=== PATIENT | female | born 1975 | race Caucasian/White ===

== ENCOUNTER → 2016-08-08 | Outpatient (REF) | payer OTHER | LOC: M LAB REF 16:57 | PROVIDERS: ATTEND Advanced Practice Midwife | DX: Z34.83 Encounter for supervision of other normal pregnancy, third trimester (principal) ==

== ENCOUNTER → 2016-08-15 | Outpatient (CLI) | payer OTHER ==
[2016-08-15 13:34] LABS: MEAN CORPUSCULAR HEMOGLOBIN 29.2 pg (27.0-33.0); MEAN CORPUSCULAR HGB CONC 33.9 g/dl (32.0-36.5); MEAN CORPUSCULAR VOLUME 86.4 fl (80.0-96.0); RED CELL DISTRIBUTION WIDTH 13.5 % (11.5-14.5); WHITE BLOOD COUNT 12.8 K/mm3 (4.0-10.0)
[2016-08-15 14:02] LABS: ALT/SGPT 23 U/L (12-78); AST/SGOT 24 U/L (15-37); BILIRUBIN,TOTAL 0.4 MG/DL (0.2-1.0); CREATININE FOR GFR 0.69 MG/DL (0.55-1.02); GLOMERULAR FILTRATION RATE > 60.0 (>60)
== END ==
LOC: M WUC 10:35
PROVIDERS: ATTEND Advanced Practice Midwife
DX: O16.3 Unspecified maternal hypertension, third trimester (principal); Z3A.00 Weeks of gestation of pregnancy not specified

== ENCOUNTER 2016-08-31 16:14 | Inpatient (IN) | payer OTHER ==
[2016-08-31] VITALS (8 sets, daily range): BP systolic 129–152; BP diastolic 61–89
[~2016-08-31] VITALS: Ht 167.6 cm; Wt 98.0 kg
[2016-08-31] MEDS ORDERED: PRENTAB9 PO (16:36)
[2016-08-31] MEDS ORDERED: LACTATED RINGER'S 1000 ML IV STA (17:58)
[2016-08-31] MEDS ORDERED: LR 1,000 ML IV SCH (17:58)
[2016-08-31] MEDS ORDERED: miSOPROStol 50 MCG 1/2 TAB (S0191) SL ONE (18:00)
[2016-08-31 18:43] LABS: MEAN CORPUSCULAR HEMOGLOBIN 29.3 pg (27.0-33.0); MEAN CORPUSCULAR HGB CONC 34.4 g/dl (32.0-36.5); MEAN CORPUSCULAR VOLUME 85.3 fl (80.0-96.0); RED CELL DISTRIBUTION WIDTH 14.5 % (11.5-14.5); WHITE BLOOD COUNT 19.5 K/mm3 (4.0-10.0)
[2016-08-31 19:00] LABS: ALT/SGPT 15 U/L (12-78); AST/SGOT 20 U/L (15-37); BILIRUBIN,TOTAL 0.3 MG/DL (0.2-1.0); GLOMERULAR FILTRATION RATE > 60.0 (>60); URIC ACID 4.6 MG/DL (2.6-6.0)
[2016-08-31] MEDS ORDERED: OXYTOCIN DRIP 30 UNITS in APPROPRIATE DILUENT 1 EA IV SCH (23:45)
[2016-09-01] VITALS (37 sets, daily range): BP systolic 92–172; BP diastolic 46–94
[2016-09-01] MEDS ORDERED: OMEPRAZOLE 20 MG CAP PO ONE (00:45)
[2016-09-01] MEDS ORDERED: FENTANYL 2MCG/ML ROPIVACAINE 0.2% NACL 250 ML CADD As Ordered ONE (01:49)
[2016-09-01 02:16] LABS: MEAN CORPUSCULAR HEMOGLOBIN 29.2 pg (27.0-33.0); MEAN CORPUSCULAR HGB CONC 34.5 g/dl (32.0-36.5); MEAN CORPUSCULAR VOLUME 84.7 fl (80.0-96.0); RED CELL DISTRIBUTION WIDTH 14.3 % (11.5-14.5); WHITE BLOOD COUNT 21.1 K/mm3 (4.0-10.0)
[2016-09-01] MEDS ORDERED: REFRIGERATOR IV KEYS XX PRN (02:25)
[2016-09-01] MEDS ORDERED: ePHEDrine SULFATE 25 MG/5 ML(5MG/ML) SYRINGE IV PRN (02:25)
[2016-09-01] MEDS ORDERED: LACTATED RINGER'S 1000 ML IV PRN (02:25)
[2016-09-01] MEDS ORDERED: ONDANSETRON 4MG/2ML VIAL (J2405) IV PRN (02:25)
[2016-09-01] MEDS ORDERED: EPIDURAL COMMENT XX SCH (02:25)
[2016-09-01] MEDS ORDERED: diphenhydrAMINE INJ 50MG/ML VIAL (J1200) IV PRN (02:25)
[2016-09-01] MEDS ORDERED: NALOXONE INJ 0.4 MG/1 ML VIAL (J2310) IV PRN (02:25)
[2016-09-01] MEDS ORDERED: FENTANYL/ROPIVACAINE/NACL CADD 250 ML EPIDURAL SCH (02:25)
[2016-09-01] MEDS ORDERED: EPIDURAL/PCA KEYS XX PRN (02:25)
[2016-09-01] MEDS ORDERED: ePHEDrine SULFATE 25 MG/5 ML(5MG/ML) SYRINGE As Ordered ONE (03:01)
[2016-09-01 08:31] LABS: CORD GAS ABE V -8.2; CORD GAS O2 SAT V 37.1 %; CORD GAS PCO2 V 57.4 mmHg; CORD GAS PH V 7.182 UNITS; CORD GAS SBC V 16.6 MEQ/L; CORD GAS TCO2 V 22.8 MEQ/L
[2016-09-01 08:39] LABS: CORD GAS ABE A -10.1; CORD GAS HCO3 A 22.2 MEQ/L; CORD GAS O2 SAT A 21.8 %; CORD GAS PCO2 A 79.4 mmHg; CORD GAS PH A 7.064 UNITS; CORD GAS PO2 A 17.3 mmHg; CORD GAS TCO2 A 24.6 MEQ/L
[2016-09-01] MEDS: PRENATAL VITAMIN TAB PO SCH (09:00)
[2016-09-01] MEDS ORDERED: OXYTOCIN DRIP 30 UNITS in APPROPRIATE DILUENT 1 EA IV SCH (09:55)
[2016-09-01] MEDS ORDERED: METHYLERGONOVINE MALEATE 0.2 MG TAB PO PRN (10:00)
[2016-09-01] MEDS ORDERED: DOCUSATE SODIUM 100 MG CAP PO PRN (10:00)
[2016-09-01] MEDS ORDERED: ACETAMINOPHEN 500 MG TAB PO PRN (10:00)
[2016-09-01] MEDS ORDERED: ANUSOL HC CREAM 30GM TOP PRN (10:00)
[2016-09-01] MEDS ORDERED: MOM 30ML SUSPENSION UDC PO PRN (10:00)
[2016-09-01] MEDS ORDERED: RHOGAM 300 MCG (1500 IU) INJ (J2790) IM SCH (10:00)
[2016-09-01] MEDS ORDERED: DIBUCAINE 1% OINTMENT 30GM TOP PRN (10:00)
[2016-09-01] MEDS ORDERED: MEASLES,MUMPS,RUBELLA VACCINE INJ (MMR-II) (90707) SC SCH (10:00)
[2016-09-01] MEDS: IBUPROFEN 800 MG TAB PO PRN ×2 (10:04→19:59)
--- NOTE | 2016-09-01 11:29 | DN ---
DATE OF DELIVERY: 09/01/2016 TIME OF : 0816 hours. GENDER: Female. SCORES: 8 and 10. WEIGHT: 4400 grams or 9 pounds 11 ounces. LACERATIONS: Second degree midline laceration. ANESTHESIA: Epidural. ESTIMATED BLOOD LOSS: 300 mL. COUNTS: Five laparotomy sponges accounted for prior to and after delivery. Four sharps removed from the delivery field. CORD GASES: 7.064, 7.182 with base excesses of -10.1 and -8.2, respectively. COMPLICATIONS: Shoulder dystocia, approximately 60 seconds, alleviated with suprapubic pressure and Cesar maneuver. DELIVER NOTE: On September 01, 2016, Mrs. Avila a 41-year-old 1 now para 1 had a vaginal delivery of a live born female . scores of 8 and 10. Weight was 9 pounds 11 ounces or 4400 grams. Left occipitoanterior (KINGS). There was a nuchal cord which was manually reduced. Attempt to deliver the right anterior shoulder with downward traction was unsuccessful, at which time requested for Cesar maneuver along with suprapubic pressure, which alleviated the right anterior shoulder. This was then followed by delivery of the left posterior shoulder and corpus. The infant was then handed to the mom with a good cry. Cord was clamped times two and was cut. Cord blood and cord gases were obtained. The placenta was then drained and delivered virtually intact. A premixed bag of 500 mL of normal saline with 30 units of pitocin was then bolused along with uterine massage. The uterus was firm. On inspection there was a second degrees midline laceration which was repaired with #3-0 Vicryl Rapide. On reinspection the cervix, vagina and perineum was grossly intact and hemostatic. Mom and baby were recovering in stable condition. The couple has decided to name their daughter Leticia . CHAPITO
[2016-09-01] MEDS ORDERED: FIORICET TAB PO ONE (11:30)
[2016-09-02 05:27] VITALS: BP 139/74
[2016-09-02] MEDS: PRENATAL VITAMIN TAB PO SCH (07:53)
[2016-09-02] MEDS: IBUPROFEN 800 MG TAB PO PRN ×2 (07:54→17:49)
[2016-09-02 18:31] VITALS: BP 140/64
[2016-09-03 06:04] VITALS: BP 124/66
[2016-09-03] MEDS: PRENATAL VITAMIN TAB PO SCH (08:22)
[2016-09-03] MEDS: IBUPROFEN 800 MG TAB PO PRN (08:23)
[2016-09-03] MEDS ORDERED: ACET50TA PO (09:33)
[2016-09-03] MEDS ORDERED: IBUP-1114 PO (09:34)
[2016-09-03] MEDS ORDERED: MOM30SS PO (09:35)
[2016-09-03] MEDS ORDERED: COLA100C PO (09:36)
== END 2016-09-03 12:50 | disposition home or self-care (01) | DRG 775 ==
LOC: M LDI 16:14 → M OBS 09-01 10:13
PROVIDERS: ADMIT Obstetrics & Gynecology; ATTEND Obstetrics & Gynecology
PROC: 3E0D7GC Introduction of Other Therapeutic Substance into Mouth and Pharynx, Via Natural or Artificial Opening (ICD-10-PCS; 2016-08-31)
PROC: 10E0XZZ Delivery of Products of Conception, External Approach (ICD-10-PCS; principal; 2016-09-01)
PROC: 0KQM0ZZ Repair Perineum Muscle, Open Approach (ICD-10-PCS; 2016-09-01)
DX: O13.4 Gestational [pregnancy-induced] hypertension without significant proteinuria, complicating childbirth (principal); Z37.0 Single live birth; Z3A.39 39 weeks gestation of pregnancy; O70.1 Second degree perineal laceration during delivery; O66.0 Obstructed labor due to shoulder dystocia; O69.82X0 Labor and delivery complicated by other cord entanglement, without compression, not applicable or unspecified; Z79.899 Other long term (current) drug therapy; Z83.3 Family history of diabetes mellitus; Z91.013 Allergy to seafood

== ENCOUNTER → 2017-11-27 | Outpatient (REF) | payer OTHER ==
[2017-11-30 14:16] LABS: HPV HYBRID CAPTURE II Negative (Negative)
== END ==
LOC: M LAB REF 09:38
DX: Z12.4 Encounter for screening for malignant neoplasm of cervix (principal)

== ENCOUNTER → 2017-11-29 | Outpatient (CLI) | payer OTHER | LOC: M RAD 15:35 | DX: Z12.31 Encounter for screening mammogram for malignant neoplasm of breast (principal); N63.12 Unspecified lump in the right breast, upper inner quadrant ==

== ENCOUNTER → 2020-05-26 | Outpatient (REF) | payer OTHER ==
[~2020-05-26] MED LIST: COLA100C5 PO; IBUP-1114 PO; MAPA500T2 PO; MOM30SS PO; PRENTAB9 PO
[2020-05-26 13:28] LABS: HEMATOCRIT 40.3 % (36.0-47.0); HEMOGLOBIN 13.4 g/dl (12.0-15.5); MEAN CORPUSCULAR HEMOGLOBIN 28.8 pg (27.0-33.0); MEAN CORPUSCULAR HGB CONC 33.3 g/dl (32.0-36.5); MEAN CORPUSCULAR VOLUME 86.7 fl (80.0-96.0); PLATELET COUNT, AUTOMATED 260 10^3/uL (150-450); RED BLOOD COUNT 4.65 10^6/uL (4.00-5.40); WHITE BLOOD COUNT 9.8 10^3/uL (4.0-10.0)
[2020-05-26 13:51] LABS: HEMOGLOBIN A1c 5.9 %
[2020-05-26 13:54] LABS: ALBUMIN 3.5 GM/DL (3.2-5.2); ALT/SGPT 27 U/L (12-78); BILIRUBIN,TOTAL 0.6 MG/DL (0.2-1.0); BLOOD UREA NITROGEN 17 MG/DL (7-18); CALCIUM LEVEL 8.6 MG/DL (8.5-10.1); CARBON DIOXIDE LEVEL 28 MEQ/L (21-32); CHLORIDE LEVEL 104 MEQ/L (98-107); CHOLESTEROL LEVEL 227 MG/DL (<200); CHOLESTEROL RISK RATIO 3.847 (<5); CREATININE FOR GFR 0.91 MG/DL (0.55-1.30); GLOMERULAR FILTRATION RATE > 60.0 (>58); GLUCOSE, FASTING 85 MG/DL (70-100); HDL CHOLESTEROL 59 MG/DL (>40); LDL CHOLESTEROL 125 MG/DL (<100); NON-HDL-C 168 MG/DL; SODIUM LEVEL 136 MEQ/L (136-145); TOTAL PROTEIN 7.1 GM/DL (6.4-8.2); TRIGLYCERIDES LEVEL 214 MG/DL (<150)
[2020-05-26 14:00] LABS: TOTAL 25(OH) VITAMIN D 28.7 NG/ML (30.0-100.0)
== END ==
LOC: M SFHCPLAZ 09:55
PROVIDERS: ATTEND Nurse Practitioner Family
DX: J30.89 Other allergic rhinitis (principal); Z83.3 Family history of diabetes mellitus; Z13.220 Encounter for screening for lipoid disorders; E55.9 Vitamin D deficiency, unspecified

== ENCOUNTER → 2020-06-03 | Outpatient (CLI) | payer OTHER | LOC: M LABSMTC 13:40 | PROVIDERS: ATTEND Family Medicine | DX: Z20.828 Contact with and (suspected) exposure to other viral communicable diseases (principal) ==

== ENCOUNTER → 2020-07-02 | Outpatient (CLI) | payer OTHER ==
--- NOTE | 2020-07-05 13:08 | REP ---
INDICATION: N63.10 RIGHT BREAST MASS. COMPARISON: Mammogram and ultrasound 02/25/2020. TECHNIQUE: Sonographic evaluation of right breast performed at 4-5 o'clock where there is reportedly a palpable lump. FINDINGS: That the 4 o'clock position of the right breast approximately 2 cm from the nipple there is a complex he has elongated abnormality with internal mixed echogenicity measuring 2.7 x 2.4 x 0.9 cm. There are few small cystic/fluid areas within the abnormality but primarily the echogenicity is hypoechoic, with ill-defined margins. There is no significant hyperemia internally with Doppler evaluation. IMPRESSION: BIRADS/ACR category 4 suspicious. At the site of the palpable lump 4 o'clock right breast there is an ill-defined predominately hypoechoic abnormality measuring 2.7 x 2.4 x 0.9 cm. Ultrasound-guided biopsy is recommended. RECOMMENDATION: Recommend ultrasound-guided biopsy right breast. Also the patient's Tyrer-Cuzick lifetime risk of breast cancer is reported at 22.0%. Supplemental screening MRI of the breasts would be recommended for this patient, and therefore, the abnormality in the right breast at 4 o'clock could be evaluated with MRI prior to a biopsy. <Electronically signed by Gab Lei > 07/05/20 [id number]
== END ==
LOC: M WHC 14:53
PROVIDERS: ATTEND Surgery
DX: N63.14 Unspecified lump in the right breast, lower inner quadrant (principal)

== ENCOUNTER → 2020-07-21 | Outpatient (CLI) | payer OTHER ==
[~2020-07-21] MED LIST changes: +ALLE24TA7 PO; +BEYATAB PO; +OMEP40CA97 PO; +VITA100T59 PO; +VITAD400CA FT
[2020-07-21 08:57] VITALS: BP 136/86
--- NOTE | 2020-07-21 10:17 | REP ---
INDICATION: N63.10 RT BREAST MASS,POST U/S GUIDED BOPSY. Marker clip placement views. COMPARISON: Comparison mammography February 25, 2020. Comparison is made with recent right breast sonography. TECHNIQUE: Craniocaudal and true mediolateral views of the right breast are obtained. Two views study. This mammogram was interpreted with the aid of an FDA-approved computer-aided detection system. FINDINGS: A needle biopsy marker clip is seen in good position in the inferomedial aspect of the right breast where previous mammography showed a few punctate calcifications and ill-defined soft tissue density. These findings appear less prominent. No hematoma is seen. IMPRESSION: Marker clip in good position. This patient's Tyrer-Cuzick lifetime breast cancer risk assessment score is 22.0%. RECOMMENDATION: Clinical management depending on biopsy results. Patients whose estimated lifetime breast cancer risk assessment is greater than 20% merit annual screening breast MRI scanning.. <Electronically signed by Klaus Flood > 07/21/20 [id number]
--- NOTE | 2020-07-22 08:11 | REP ---
INDICATION: N63.10 RT BREAST MASS,US GUIDED BIOPSY. COMPARISON: Comparison sonography July 02, 2020.. TECHNIQUE: Sonographic guidance. FINDINGS: Sonographic guidance is provided to Dr. Castro performed ultrasound-guided right breast needle biopsy procedure and marker clip placement. IMPRESSION: Sonographic guidance for ultrasound-guided needle biopsy procedure. <Electronically signed by Klaus Flood > 07/22/20 [id number]
--- NOTE | 2020-07-23 21:49 | ROOPDOC ---
[facility] Report Of Operation Report of Operation DATE OF PROCEDURE: 07/21/20 DIAGNOSIS: right breast suspicious lesion PROCEDURE: Ultrasound guided biopsy of right breast suspicious lesion with clip placement SURGEON: Abraham Bee BLOOD LOSS: minimal COMPLICATIONS: none Lidocaine 1% LOT [id number] Expiration 09/15 Sodium Bicarbonate 8.4% LOT [id number] Expiration 10/13 Hydromark clip LOT [id number] Expiration 04/16 SHAPE 3 Bx device: BARD [id number] x10 cm LOT [id number] Expiration 01/14 Informed consent was obtained. The most common risk and possible complications including bleeding, hematoma, bruising, infection, injury to surrounding structures were explained to the patient and the patient expressed under standing. Patient was placed on the bed in the supine position. Appropriate time out was done stating patients name, date of , and the procedure to be performed. The right breast was prepped and draped in the usual fashion. The ultrasound was used to confirm the location of the lesion in the right breast at 4:00 2 CFN. Plain Lidocaine 1% and 8.4% sodium bicarbonate 10:1 mix was used to anesthetize the skin, the biopsy site and tissues along the anticipated biopsy tract. Small skin incision was made with blade number 11. BARD Marquee 14G cannula with introducer ([id number]) was inserted through the incision and advanced under the ultrasound guidance to position immediately adjacent to the lesion. Next, the introducer was removed and BARD Marquee 14G biopsy device was places in the cannula. Pre-biopsy imaging, and post-biopsy imaging were captured. Five good core biopsies were taken at various levels of the lesion. Specimen was placed in formaldehyde, labeled with appropriate biopsy site and patients name, and sent to pathology for evaluation. Next, the biopsy device was withdrawn and a clip introducer was inserted into the biopsy site via the cannula. The SHAPE 3 Hydromark clip was deployed under sonographic guidance. Post-clip placement image was captured. Manual pressure over the biopsy cavity and tract was held after the clip introducer was withdrawn. No bleeding was noted upon removal of the pressure. Post-biopsy mammogram of the right breast was obtained and showed clip in expected position. Postprocedural dressing was placed. Patient tolerated procedure well. Discharge instructions were discussed with the patient and the patient expressed understanding. ABRAHAM BEE DO Jul 23, 2020:49
== END ==
LOC: M WHCPRO 07:55
PROVIDERS: ATTEND Surgery
DX: N60.89 Other benign mammary dysplasias of unspecified breast (principal); Z91.013 Allergy to seafood

== ENCOUNTER → 2020-09-28 | Outpatient (CLI) | payer OTHER ==
[~2020-09-28] MED LIST changes: +PROHANCE 279.3MG/ML 15ML VIAL As Ordered ONE; +PROHANCE 279.3MG/ML 5ML VIAL As Ordered ONE
--- NOTE | 2020-09-28 17:42 | REP ---
INDICATION: OTH PERSONAL RISK FACTORS, NOT ELSEWHERE CLASSIFIED. COMPARISON: Mammogram 02/25/2020. TECHNIQUE: Three [place] MRI imaging was performed with a dedicated breast coil. Axial, coronal, and sagittal T1 and T2 weighted scans were obtained with and without fat saturation in the usual fashion. The study includes dynamically acquired post gadolinium-enhanced imaging with image subtraction. Maximum intensity projection and multi planar reformation imaging is included as well. This study is interpreted with the aid of Dry Lube, an FDA approved computer aided detection (CAD) software program, on a dedicated breast MRI workstation. The gadolinium enhancement dose is 16 mL of intravenous ProHance. FINDINGS: There is bilateral extreme parenchymal tissue throughout the breasts. There is no evidence of significant axillary adenopathy bilaterally. Biopsy marking clip is seen inferomedially in the right breast status post benign right breast biopsy. No significant cystic changes seen bilaterally. There is moderate background parenchymal enhancement bilaterally, diffusely. There is no suspicious enhancing mass or morphologic abnormality. IMPRESSION: BI-RADS category 1, negative bilateral breast MRI. No suspicious enhancing mass or morphologic abnormality. <Electronically signed by Gab Lei > 09/28/20 [id number]
== END ==
LOC: M RAD 14:49
PROVIDERS: ATTEND Surgery
DX: Z91.89 Other specified personal risk factors, not elsewhere classified (principal)
CPT/HCPCS: A9576; C8908

== ENCOUNTER → 2020-12-30 | Outpatient (CLI) | payer OTHER ==
[~2020-12-30] MED LIST changes: +OMEP40CA4 PO; -OMEP40CA97 PO; -PROHANCE 279.3MG/ML 15ML VIAL As Ordered ONE; -PROHANCE 279.3MG/ML 5ML VIAL As Ordered ONE
--- NOTE | 2020-12-30 11:29 | REP ---
INDICATION: S/P BENIGN BX OF R 4:00 MASS PLS ASSESS STABILTY; S/P BENIGN BX OF R BREAST 4:00 MASS PLS ASSESS. COMPARISON: Comparison mammography November 29, 2017, February 25, 2020, and July 21, 2020. Comparison sonography July 02, 2020. Comparison right breast sonography is from February 25, 2020 as well. TECHNIQUE: Craniocaudal, mediolateral, and mediolateral oblique views of the right breast are obtained with 3D tomography. Targeted right breast sonography is performed. This mammogram was interpreted with the aid of an FDA-approved computer-aided detection system. FINDINGS: Breast parenchyma is again noted to be heterogeneously dense in a pattern which may inhibit the sensitivity mammography. A previously placed needle biopsy marker clip with its cylindrical surrounding hydrophilic core is visible adjacent to some somewhat nodular breast parenchyma in the medial and inferior aspect of the right breast unchanged from the most recent comparison mammography. No new density or progressive changes seen. No other suspicious mammographic feature. The Volpara volumetric breast density pattern is see. Targeted ultrasound: Targeted right breast sonography is repeated in this patient status post benign biopsy. Heterogeneous fibroglandular background echotexture is seen. HydroMARK device is visible adjacent to the hypoechoic tissue seen previously. This is unchanged from comparison sonography February 25, 2020. IMPRESSION: BIRADS/ACR category 2 benign stable mammographic and sonographic findings. This patient's estimated Tyrer-Cuzick lifetime risk assessment for breast cancer is 22.0%. Enhanced screening in the form of annual bilateral breast MRI scanning is warranted. Bilateral breast MRI scanning is recommended annually, beginning 6 months from now. RECOMMENDATION: Repeat screening mammography recommended 1 year (for women over 40). Bilateral breast MRI screening is recommended annually, beginning 6 months from now. The patient letter being requested is M2 dense. <Electronically signed by Klaus Flood > 12/30/20 [id number]
== END ==
LOC: M WHC 09:48
PROVIDERS: ATTEND Surgery
DX: N63.14 Unspecified lump in the right breast, lower inner quadrant (principal)
CPT/HCPCS: 76642; 77065; G0279

== ENCOUNTER → 2021-02-16 | Outpatient (REF) | payer OTHER | LOC: M SFHCWAGY 12:50 | PROVIDERS: ATTEND Nurse Practitioner Women's Health | DX: Z12.4 Encounter for screening for malignant neoplasm of cervix (principal) | CPT/HCPCS: 87624; G0123 ==

== ENCOUNTER → 2021-04-01 | Outpatient (CLI) | payer OTHER ==
[2021-04-01 13:14] LABS: ALBUMIN 3.5 GM/DL (3.2-5.2); ALT/SGPT 41 U/L (12-78); BILIRUBIN,TOTAL 0.7 MG/DL (0.2-1.0); BLOOD UREA NITROGEN 20 MG/DL (7-18); CALCIUM LEVEL 8.6 MG/DL (8.5-10.1); CARBON DIOXIDE LEVEL 27 MEQ/L (21-32); CHLORIDE LEVEL 106 MEQ/L (98-107); CHOLESTEROL LEVEL 220 MG/DL (<200); CHOLESTEROL RISK RATIO 3.859 (<5); CREATININE FOR GFR 0.84 MG/DL (0.55-1.30); FREE T4 1.23 NG/DL (0.76-1.46); GLOMERULAR FILTRATION RATE > 60.0 (>58); GLUCOSE, FASTING 88 MG/DL (70-100); HDL CHOLESTEROL 57 MG/DL (>40); LDL CHOLESTEROL 134 MG/DL (<100); NON-HDL-C 163 MG/DL; POTASSIUM SERUM 4.4 MEQ/L (3.5-5.1); SODIUM LEVEL 139 MEQ/L (136-145); TOTAL PROTEIN 6.9 GM/DL (6.4-8.2); TRIGLYCERIDES LEVEL 147 MG/DL (<150)
[2021-04-01 13:18] LABS: TOTAL 25(OH) VITAMIN D 50.7 NG/ML (30.0-100.0)
[2021-04-01 18:27] LABS: HEMOGLOBIN A1c 5.7 %
== END ==
LOC: M WUC 08:25
PROVIDERS: ATTEND Nurse Practitioner Family
DX: E78.00 Pure hypercholesterolemia, unspecified (principal); R73.03 Prediabetes; E55.9 Vitamin D deficiency, unspecified

== ENCOUNTER → 2021-10-11 | Outpatient (CLI) | payer OTHER ==
[~2021-10-11] MED LIST changes: +PROHANCE 279.3MG/ML 15ML VIAL As Ordered ONE; +PROHANCE 279.3MG/ML 5ML VIAL As Ordered ONE
== END ==
LOC: M RAD 15:40
PROVIDERS: ATTEND Nurse Practitioner Women's Health
DX: Z91.89 Other specified personal risk factors, not elsewhere classified (principal)
CPT/HCPCS: A9576; C8908

== ENCOUNTER → 2022-01-17 | Outpatient (CLI) | payer OTHER ==
[~2022-01-17] MED LIST changes: -PROHANCE 279.3MG/ML 15ML VIAL As Ordered ONE; -PROHANCE 279.3MG/ML 5ML VIAL As Ordered ONE
== END ==
LOC: M WHC 15:47
PROVIDERS: ATTEND Nurse Practitioner Women's Health
DX: Z12.31 Encounter for screening mammogram for malignant neoplasm of breast (principal); Z91.89 Other specified personal risk factors, not elsewhere classified; Z80.3 Family history of malignant neoplasm of breast

== ENCOUNTER → 2022-04-05 | Outpatient (CLI) | payer OTHER ==
[2022-04-05 10:18] LABS: BASO # 0.1 10^3/uL (0.0-0.2); BASO % 0.6 % (0.0-1.0); EOS # 0.3 10^3/uL (0.0-0.5); EOS % 2.6 % (0.0-3.0); HEMATOCRIT 39.1 % (36.0-47.0); HEMOGLOBIN 13.2 g/dl (12.0-15.5); LYMPH # 2.8 10^3/uL (1.5-5.0); LYMPH % 26.9 % (24.0-44.0); MEAN CORPUSCULAR HEMOGLOBIN 29.5 pg (27.0-33.0); MEAN CORPUSCULAR HGB CONC 33.8 g/dl (32.0-36.5); MEAN CORPUSCULAR VOLUME 87.3 fl (80.0-96.0); MONO # 0.5 10^3/uL (0.0-0.8); MONO % 4.4 % (2.0-8.0); NEUTROPHILS # 6.7 10^3/uL (1.5-8.5); PLATELET COUNT, AUTOMATED 262 10^3/uL (150-450); RED BLOOD COUNT 4.48 10^6/uL (4.00-5.40); WHITE BLOOD COUNT 10.3 10^3/uL (4.0-10.0)
[2022-04-05 10:38] LABS: HEMOGLOBIN A1c 5.7 %
[2022-04-05 11:11] LABS: ALBUMIN 3.6 GM/DL (3.2-5.2); ALT/SGPT 33 U/L (12-78); BILIRUBIN,TOTAL 0.7 MG/DL (0.2-1.0); BLOOD UREA NITROGEN 23 MG/DL (7-18); CALCIUM LEVEL 9.2 MG/DL (8.5-10.1); CARBON DIOXIDE LEVEL 27 MEQ/L (21-32); CHLORIDE LEVEL 103 MEQ/L (98-107); CHOLESTEROL LEVEL 242 MG/DL (<200); CHOLESTEROL RISK RATIO 3.841 (<5); CREATININE FOR GFR 0.95 MG/DL (0.55-1.30); GLOMERULAR FILTRATION RATE > 60.0 (>58); GLUCOSE, FASTING 110 MG/DL (70-100); HDL CHOLESTEROL 63 MG/DL (>40); IRON (FE) 175 UG/DL (50-170); LDL CHOLESTEROL 135 MG/DL (<100); NON-HDL-C 179 MG/DL; POTASSIUM SERUM 4.1 MEQ/L (3.5-5.1); SODIUM LEVEL 135 MEQ/L (136-145); TOTAL PROTEIN 7.4 GM/DL (6.4-8.2); TRIGLYCERIDES LEVEL 218 MG/DL (<150)
== END ==
LOC: M WUC 08:04
PROVIDERS: ATTEND Physician Assistant
DX: R73.03 Prediabetes (principal); Z13.220 Encounter for screening for lipoid disorders; D50.9 Iron deficiency anemia, unspecified; E55.9 Vitamin D deficiency, unspecified

== ENCOUNTER → 2023-02-02 | Outpatient (CLI) | payer OTHER | LOC: M WHC 09:17 | PROVIDERS: ATTEND Nurse Practitioner Women's Health | DX: Z12.31 Encounter for screening mammogram for malignant neoplasm of breast (principal); Z80.3 Family history of malignant neoplasm of breast; Z91.89 Other specified personal risk factors, not elsewhere classified ==

== ENCOUNTER → 2023-08-13 | Outpatient (CLI) | payer OTHER ==
[~2023-08-13] MED LIST changes: +PROHANCE 279.3MG/ML 15ML VIAL As Ordered ONE; +PROHANCE 279.3MG/ML 5ML VIAL As Ordered ONE
== END ==
LOC: M RAD 10:42
PROVIDERS: ATTEND Nurse Practitioner Women's Health
DX: R92.2 Inconclusive mammogram (principal); Z80.3 Family history of malignant neoplasm of breast; Z91.89 Other specified personal risk factors, not elsewhere classified
CPT/HCPCS: A9576; C8908

== ENCOUNTER → 2023-08-20 | Outpatient (CLI) | payer OTHER ==
[~2023-08-20] MED LIST changes: -PROHANCE 279.3MG/ML 15ML VIAL As Ordered ONE; -PROHANCE 279.3MG/ML 5ML VIAL As Ordered ONE
[2023-08-20 10:21] LABS: BASO # 0.1 10^3/uL (0.0-0.2); BASO % 0.8 % (0.0-1.0); EOS # 0.5 10^3/uL (0.0-0.5); EOS % 5.6 % (0.0-3.0); HEMATOCRIT 39.6 % (36.0-47.0); HEMOGLOBIN 13.2 g/dl (12.0-15.5); LYMPH # 2.6 10^3/uL (1.5-5.0); LYMPH % 29.3 % (24.0-44.0); MEAN CORPUSCULAR HEMOGLOBIN 29.3 pg (27.0-33.0); MEAN CORPUSCULAR HGB CONC 33.3 g/dl (32.0-36.5); MEAN CORPUSCULAR VOLUME 87.8 fl (80.0-96.0); MONO # 0.5 10^3/uL (0.0-0.8); MONO % 5.9 % (2.0-8.0); NEUTROPHILS # 5.1 10^3/uL (1.5-8.5); NEUTROPHILS % 58.1 % (36.0-66.0); PLATELET COUNT, AUTOMATED 235 10^3/uL (150-450); RED BLOOD COUNT 4.51 10^6/uL (4.00-5.40); WHITE BLOOD COUNT 8.9 10^3/uL (4.0-10.0)
[2023-08-20 10:47] LABS: IRON (FE) 62 UG/DL (50-170); PERCENT SATURATION 17.3 % (13.2-45.0); TOTAL IRON BINDING CAPACITY 358 UG/DL (250-425)
[2023-08-20 10:48] LABS: ALBUMIN 3.6 G/DL (3.2-5.2); ALKALINE PHOSPHATASE 62 U/L (46-116); ALT/SGPT 77 U/L (7.0-40); AST/SGOT 191 U/L (<34); BILIRUBIN,TOTAL 0.4 MG/DL (0.3-1.2); BLOOD UREA NITROGEN 21 MG/DL (9-23); CALCIUM LEVEL 9.2 MG/DL (8.5-10.1); CARBON DIOXIDE LEVEL 28 MMOL/L (20-31); CHLORIDE LEVEL 104 MMOL/L (98-107); CHOLESTEROL LEVEL 246 MG/DL (<200); CHOLESTEROL RISK RATIO 4.38 (<5); CREATININE FOR GFR 0.76 MG/DL (0.55-1.30); GLOMERULAR FILTRATION RATE > 60.0 (>58); GLUCOSE, FASTING 103 MG/DL (60-100); HDL CHOLESTEROL 56.1 MG/DL (>40); LDL CHOLESTEROL 159.5 MG/DL (<100); NON-HDL-C 189.9 MG/DL; POTASSIUM SERUM 4.1 MMOL/L (3.5-5.1); SODIUM LEVEL 137 MMOL/L (136-145); TOTAL 25(OH) VITAMIN D 33.7 NG/ML (20.0-100.0); TOTAL PROTEIN 6.8 G/DL (5.7-8.2); TRIGLYCERIDES LEVEL 152 MG/DL (<150); VITAMIN B12 LEVEL 409 PG/ML (211-911)
[2023-08-20 10:49] LABS: FERRITIN 102.2 NG/ML (7.3-270.7); THYROID STIMULATING HORMONE 1.393 uIU/ML (0.55-4.78)
[2023-08-20 10:50] LABS: FREE T4 1.08 NG/DL (0.89-1.76)
[2023-08-20 10:53] LABS: HEMOGLOBIN A1c 5.8 % (4.0-6.0)
== END ==
LOC: M PLALAB 07:31
PROVIDERS: ATTEND Physician Assistant
DX: D50.9 Iron deficiency anemia, unspecified (principal); E55.9 Vitamin D deficiency, unspecified; R73.03 Prediabetes; E78.00 Pure hypercholesterolemia, unspecified; Z13.29 Encounter for screening for other suspected endocrine disorder

== ENCOUNTER → 2024-02-15 | Outpatient (CLI) | payer OTHER ==
[2024-02-15 13:16] LABS: ALBUMIN 3.8 G/DL (3.2-5.2); BILIRUBIN,DIRECT 0.2 MG/DL (<0.4); BILIRUBIN,TOTAL 0.7 MG/DL (0.3-1.2); TOTAL PROTEIN 7.3 G/DL (5.7-8.2)
== END ==
LOC: M PLAIMG 09:26
PROVIDERS: ATTEND Physician Assistant
DX: R74.8 Abnormal levels of other serum enzymes (principal); M25.522 Pain in left elbow

== ENCOUNTER → 2024-02-15 | Outpatient (CLI) | payer OTHER | LOC: M WHC 08:49 | PROVIDERS: ATTEND Nurse Practitioner Women's Health | DX: Z12.31 Encounter for screening mammogram for malignant neoplasm of breast (principal); Z80.3 Family history of malignant neoplasm of breast; Z91.89 Other specified personal risk factors, not elsewhere classified ==

== ENCOUNTER → 2024-04-17 | Outpatient (REF) | payer OTHER ==
[2024-04-21 16:39] LABS: HPV APTIMA Not Detected (Not Detected)
== END ==
LOC: M PLALAB 13:53
PROVIDERS: ATTEND Advanced Practice Midwife
DX: Z12.4 Encounter for screening for malignant neoplasm of cervix (principal); Z11.51 Encounter for screening for human papillomavirus (HPV)
CPT/HCPCS: 87624; G0123

== ENCOUNTER → 2024-09-11 | Outpatient (CLI) | payer OTHER ==
[~2024-09-11] MED LIST changes: +PROHANCE 279.3MG/ML 15ML VIAL ONE; +PROHANCE 279.3MG/ML 5ML VIAL ONE
== END ==
LOC: M PLAIMG 15:40
PROVIDERS: ATTEND Advanced Practice Midwife
DX: Z91.89 Other specified personal risk factors, not elsewhere classified (principal); R92.343 Mammographic extreme density, bilateral breasts; Z12.31 Encounter for screening mammogram for malignant neoplasm of breast
CPT/HCPCS: A9576; C8908

== ENCOUNTER → 2025-03-20 | Outpatient (CLI) | payer OTHER ==
[~2025-03-20] MED LIST changes: -PROHANCE 279.3MG/ML 15ML VIAL ONE; -PROHANCE 279.3MG/ML 5ML VIAL ONE
[2025-03-20 14:54] LABS: PLATELET COUNT, AUTOMATED 280 10^3/uL (150-450)
[2025-03-20 15:20] LABS: ALT/SGPT 35.0 U/L (7.0-40); AST/SGOT 71.0 U/L (<34); CALCIUM LEVEL 8.9 MG/DL (8.5-10.1); CARBON DIOXIDE LEVEL 26.0 MMOL/L (20-31); CHLORIDE LEVEL 102.0 MMOL/L (98-107); CREATININE FOR GFR 0.82 MG/DL (0.55-1.30); GLOMERULAR FILTRATION RATE 88.7 (>58); IRON (FE) 108.0 UG/DL (50-170); PERCENT SATURATION 30.8 % (13.2-45.0); POTASSIUM SERUM 4.3 MMOL/L (3.5-5.1); SODIUM LEVEL 138.0 MMOL/L (136-145)
[2025-03-20 15:22] LABS: TOTAL 25(OH) VITAMIN D 35.2 NG/ML (20.0-100.0)
== END ==
LOC: M PLALAB 08:04
PROVIDERS: ATTEND Nurse Practitioner Family
DX: D50.9 Iron deficiency anemia, unspecified (principal); E55.9 Vitamin D deficiency, unspecified; R74.8 Abnormal levels of other serum enzymes